=== PATIENT | male | born 1965 | race Caucasian/White ===

== ENCOUNTER 2023-02-19 07:49 | Emergency (ER) | payer SELFPAY ==
[~2023-02-19] VITALS: Ht 182.9 cm; Wt 86.4 kg
[~2023-02-19 07:49] MED LIST: HYDR-3965 PO; NOCURR
[2023-02-19 08:04] VITALS: BP 180/96
[2023-02-19] MEDS ORDERED: PERTUSS(ACELL),DIPH,TET VAC/PF 0.5 ML SYRINGE IM. ONE (08:30)
[2023-02-19] MEDS ORDERED: BACITRACIN 0.9 GM PACKET OINTMENT TP ONE (08:30)
[2023-02-19] MEDS ORDERED: LIDOCAINE 1%/EPI 1:200,000/PF 30 ML VIAL SQ ONE (08:30)
== END 2023-02-19 09:33 | disposition home or self-care (01) ==
LOC: EMS 07:49
DX: S61.411A Laceration without foreign body of right hand, initial encounter (principal); G89.29 Other chronic pain; M54.9 Dorsalgia, unspecified; W25.XXXA Contact with sharp glass, initial encounter; Y93.89 Activity, other specified; Y92.89 Other specified places as the place of occurrence of the external cause; Y99.8 Other external cause status
CPT/HCPCS: 99283; 90715; 90471; 12002; J3490

== ENCOUNTER 2023-02-26 09:48 | Emergency (ER) | payer MEDICAID ==
[~2023-02-26] VITALS: Ht 185.4 cm; Wt 72.7 kg
[2023-02-26 09:51] VITALS: BP 198/102
== END 2023-02-26 10:16 | disposition home or self-care (01) ==
LOC: EMS 09:54
DX: G89.29 Other chronic pain (principal); Z48.02 Encounter for removal of sutures
CPT/HCPCS: 99281; Z7502

== ENCOUNTER 2024-04-25 04:51 | Emergency (ER) | payer MEDICAID ==
[~2024-04-25] VITALS: Ht 182.9 cm; Wt 90.9 kg
[2024-04-25 04:55] VITALS: TEMP 98.6
[2024-04-25 05:49] VITALS: BP 159/83; PULSE 80; RESP 20
[2024-04-25] MEDS: ACETAMINOPHEN 500 MG TABLET PO ONE (06:41)
[2024-04-25] MEDS: LIDOCAINE 5% TRANSDERMAL PATCH TD ONE (06:42)
[2024-04-25] MEDS: KETOROLAC TROMETHAMINE 30 MG/ML VIAL IM ONE (06:42)
[2024-04-25] MEDS ORDERED: ACET-3385 PO (06:46)
[2024-04-25] MEDS ORDERED: IBUP-1492 PO (06:46)
[2024-04-25] MEDS ORDERED: LIDO700A15 TP (06:46)
== END 2024-04-25 07:16 | disposition home or self-care (01) ==
LOC: EMS 04:52
DX: M54.12 Radiculopathy, cervical region (principal); M54.50 Low back pain, unspecified; I10 Essential (primary) hypertension; F17.210 Nicotine dependence, cigarettes, uncomplicated
CPT/HCPCS: 99283; 96372; J1885